=== PATIENT | female | born 1960 | race Caucasian/White ===

== ENCOUNTER 2016-08-27 15:25 | Emergency (ER) | payer MEDICARE, MEDICAID ==
[2016-08-27 15:57] VITALS: BP 131/69
--- NOTE | 2016-08-27 16:47 | EDM.PDOC ---
ED HPI GENERAL MEDICAL PROBLEM - General Chief Complaint: Upper Extremity Injury/Pain Stated Complaint: Chest wall pain, right foot pain Time Seen by Provider: 08/27/16 16:35 Source of Information: Reports: Patient, RN Notes Reviewed History Limitations: Reports: No Limitations - History of Present Illness INITIAL COMMENTS - FREE TEXT/NARRATIVE: 56 year old female presents to the ED with right anterior chest wall pain and right lateral foot pain. The symptoms started two days ago after a fall. She was running and tripped. The pain in her chest is worse with inspiration. She has tenderness under her right breast, to her bra line area. The pain raps around her right side. She denies shortness of breath. She also has right lateral foot pain. She is able to bear weight. No numbness or tingling. No LOC with the fall. No neck pain, abdominal pain, nausea, vomiting. She has a history of fibromyalgia. She took her regular pain medications earlier today and had some relief. She has Tramadol at home but hasn't taken much. Right Chest Pain Score (Numeric/FACES): 6 - Related Data Allergies Allergy/AdvReac Type Severity Reaction Status Date / Time No Known Allergies Allergy Verified 08/27/16 15:51 Home Meds: Home Meds Cymbalta. 08/27/16 [History] Gabapentin [Neurontin] 300 mg PO QID 08/27/16 [History] Losartan. 08/27/16 [History] Tramadol. 08/27/16 [History] tiZANidine [Zanaflex] 4 mg PO Q6H 08/27/16 [History] Past Medical History Cardiovascular History: Reports: Hypertension Musculoskeletal History: Reports: Back Pain, Chronic, Fibromyalgia, Osteoarthritis, Other (See Below) Other Musculoskeletal History: spinal stenosis Neurological History: Reports: Migraines Psychiatric History: Reports: Anxiety, Depression Social & Family History - Tobacco Use Smoking Status *Q: Unknown Ever Smoked - Recreational Drug Use Recreational Drug Use: Yes Drug Use in Last 12 Months: Yes Recreational Drug Type: Reports: Marijuana/Hashish ED ROS GENERAL - Review of Systems Review Of Systems: See Below Constitutional: Reports: No Symptoms. Denies: Fever, Chills Respiratory: Reports: Pleuritic Chest Pain, Other (chest wall pain). Denies: Shortness of Breath Cardiovascular: Reports: No Symptoms GI/Abdominal: Reports: No Symptoms. Denies: Abdominal Pain, Nausea, Vomiting Musculoskeletal: Reports: Foot Pain. Denies: Neck Pain Neurological: Reports: No Symptoms. Denies: Numbness, Tingling, Weakness ED EXAM, GENERAL - Physical Exam Exam: See Below Exam Limited By: No Limitations General Appearance: Alert, WD/WN, No Apparent Distress, Anxious Neck: Normal Inspection, Supple, Non-Tender, Full Range of Motion Respiratory/Chest: No Respiratory Distress, Lungs Clear, Normal Breath Sounds, Other (tenderness with palpation of right anterior chest. no crepitus, no subcutaneous emphysema) Cardiovascular: Normal Peripheral Pulses, Regular Rate, Rhythm, No Murmur GI/Abdominal: Normal Bowel Sounds, Soft, Non-Tender Extremities: Other (tenderness to right lateral foot with minimal swelling. CMS intact. She is able to bear weight.) Neurological: Alert, Oriented, Normal Cognition Course - Vital Signs Last Recorded V/S: Last Vital Signs Temp 97.2 F 08/27/16 15:54 Pulse 64 08/27/16 15:54 Resp 20 08/27/16 15:54 BP 131/69 08/27/16 15:54 Pulse Ox 97 08/27/16 15:54 - Orders/Labs/Meds Orders: Active Orders 24 hr Category Date Time Status Foot Comp Min 3V Rt [CR] Stat Exams 08/27/16 16:45 Taken Ribs 2V w Chest Rt [CR] Stat Exams 08/27/16 16:44 Taken - Re-Assessments/Exams Free Text/Narrative Re-Assessment/Exam: Chest xray is negative for pneumo or hemothorax. Rib views obtained. No rib fractures appreciated. Right foot x-ray is also negative for fracture. Patient was notified of findings. She has prescription for Tramadol. Instructed to take Tramadol as needed. Educated on supportive care. Discharge instructions as documented. Departure - Departure Time of Disposition: 17:56 Disposition: Home, Self-Care 01 Condition: good Clinical Impression: Chest wall contusion Qualifiers: Encounter type: initial encounter Laterality: right Qualified Code(s): S20.211A - Contusion of right front wall of thorax, initial encounter Foot sprain Qualifiers: Encounter type: initial encounter Laterality: right Qualified Code(s): S93.601A - Unspecified sprain of right foot, initial encounter - Discharge Information Instructions: Acute Ankle Sprain With Phase I Rehab-SportsMed, Chest Contusion , [id number] Referrals: PCP,Not In Area [Primary Care Provider] - Forms: ED Department Discharge Additional Instructions: Rest, ice and elevate your foot Ice packs to your chest Tramadol 1-2 tabs every 4-6 hours as needed for pain Use caution with increasing your Tramadol in combination with your other pain medications due to risk for over sedation Be sure to cough and deep breathe when you have adequate pain control to help prevent pneumonia. - My Orders Last 24 Hours: My Active Orders 08/27/16 16:44 Ribs 2V w Chest Rt [CR] Stat 08/27/16 16:45 Foot Comp Min 3V Rt [CR] Stat - Assessment/Plan Last 24 Hours: My Active Orders 08/27/16 16:44 Ribs 2V w Chest Rt [CR] Stat 08/27/16 16:45 Foot Comp Min 3V Rt [CR] Stat
--- NOTE | 2016-08-28 11:40 | CR ---
Chest and right ribs: Frontal view of the chest was obtained as well as three views of the right ribs. Comparison: No previous study. Heart size and mediastinum are normal. Slight linear density within the left base is seen compatible with atelectasis. Lungs otherwise are clear. No pneumothorax is seen. Minimal deformity seen within the fifth rib on one view possibly due to incomplete nondisplaced rib fracture. No additional rib abnormality is appreciated. Impression: 1. Equivocal findings for nondisplaced and incomplete fracture within the right fifth rib. 2. Minimal left basilar atelectasis. 3. Chest and right rib exam is otherwise unremarkable. Diagnostic code #3
--- NOTE | 2016-08-28 11:40 | CR ---
Right foot: Four views of the right foot were obtained. Comparison: No previous study. Joint spaces are preserved. No fracture, dislocation or other bony abnormality is identified. Impression: 1. No abnormality is identified on right foot study. Diagnostic code #1
== END 2016-08-27 18:14 | disposition home or self-care (01) ==
LOC: JD.ED 15:25
DX: S93.601A Unspecified sprain of right foot, initial encounter (principal); S20.211A Contusion of right front wall of thorax, initial encounter; I10 Essential (primary) hypertension; M19.90 Unspecified osteoarthritis, unspecified site; G43.909 Migraine, unspecified, not intractable, without status migrainosus; F41.9 Anxiety disorder, unspecified; F32.9 Major depressive disorder, single episode, unspecified; W01.0XXA Fall on same level from slipping, tripping and stumbling without subsequent striking against object, initial encounter
CPT/HCPCS: 71101-26-RT; 71101-RT; 73630-26-RT; 73630-RT; 99282; 99283

== ENCOUNTER 2017-05-05 08:24 | Emergency (ER) | payer MEDICARE, MEDICAID ==
[2017-05-05] MEDS ORDERED: Sodium Chloride 0.9% 10 ML Syringe FLUSH PRN ×2 (09:17→12:30)
[2017-05-05] MEDS ORDERED: Ondansetron 4 MG/2 ML SDV IVPUSH ONE (09:17)
--- NOTE | 2017-05-05 09:18 | EDM.PDOC ---
ED HPI GENERAL MEDICAL PROBLEM - General Chief Complaint: Back Pain or Injury Stated Complaint: [facility] Time Seen by Provider: 05/05/17 09:00 Source of Information: Reports: Patient, RN Notes Reviewed - History of Present Illness INITIAL COMMENTS - FREE TEXT/NARRATIVE: 57-year-old female comes in with severe low back pain. Had lumbar surgery 8 days ago in [place]. She had been doing relatively well and not needing much pain medication. This morning her low back pain is much more severe with some radiation down the right leg. She is okay at rest but does have severe pain with any type of motion. She is not having any fever or chills. No abdominal pain nausea or vomiting. No chest pain or difficulty breathing. Lower Back Pain Score (Numeric/FACES): 6 - Related Data Allergies Allergy/AdvReac Type Severity Reaction Status Date / Time No Known Allergies Allergy Verified 05/05/17 08:31 Home Meds: Home Meds Cymbalta. 60 mg PO DAILY 08/27/16 [History] Gabapentin [Neurontin] 600 mg PO TID 08/27/16 [History] Tramadol. 50 mg PO QID PRN 08/27/16 [History] tiZANidine [Zanaflex] 4 mg PO TID PRN 08/27/16 [History] Apixaban [Eliquis] 2.5 mg PO DAILY 05/05/17 [History] Docusate Sodium [Stool Softener] 50 mg PO DAILY PRN 05/05/17 [History] Doxycycline [Vibramycin] 100 mg PO BID #14 tab 05/05/17 [Rx] Past Medical History Cardiovascular History: Reports: Hypertension Gastrointestinal History: Reports: GERD Genitourinary History: Reports: UTI, Recurrent [employer] History: Reports: Musculoskeletal History: Reports: Back Pain, Chronic, Fibromyalgia, Osteoarthritis, Other (See Below) Other Musculoskeletal History: spinal stenosis Neurological History: Reports: Migraines Psychiatric History: Reports: Anxiety, Depression Hematologic History: Reports: Other (See Below) Other Hematologic History: factor 5--recently Dx'd. - Infectious Disease History Infectious Disease History: Reports: Chicken Pox - Past Surgical History HEENT Surgical History: Reports: Tonsillectomy, Other (See Below) Other HEENT Surgeries/Procedures: reconstructive surgery to L) ear. Wears dentures, upper/lower plates. GI Surgical History: Reports: Colonoscopy Musculoskeletal Surgical History: Reports: Other (See Below) Other Musculoskeletal Surgeries/Procedures:: "decompression" surgery to lower back. Social & Family History - Tobacco Use Smoking Status *Q: Former Smoker Years of Tobacco use: 40 Packs/Tins Daily: 1.5 Used Tobacco, but Quit: Yes Month Tobacco Last Used: November 2016 Second Hand Smoke Exposure: No - Caffeine Use Caffeine Use: Reports: Coffee - Recreational Drug Use Recreational Drug Use: Yes Drug Use in Last 12 Months: Yes Recreational Drug Type: Reports: Marijuana/Hashish Other Recreational Drug Type: states smokes Cannibus oil "for the pain." ED ROS GENERAL - Review of Systems Review Of Systems: See Below Constitutional: Denies: Fever, Chills HEENT: Denies: Throat Pain Respiratory: Denies: Shortness of Breath, Pleuritic Chest Pain Cardiovascular: Denies: Chest Pain GI/Abdominal: Denies: Abdominal Pain, Nausea, Vomiting Musculoskeletal: Denies: Back Pain Skin: Denies: Rash Neurological: Denies: Numbness, Tingling, Weakness ED EXAM,LOWER BACK PAIN/INJURY - Physical Exam Exam: See Below Eye Exam: Bilateral Eye: PERRL Throat/Mouth: Normal Inspection Head: Atraumatic. No: Facial Swelling Neck: Supple, Full Range of Motion Respiratory/Chest: No Respiratory Distress, Lungs Clear, Normal Breath Sounds Cardiovascular: Regular Rate, Rhythm GI/Abdominal: Non-Tender Back Exam: Other (Incision low back is healing well, no warmth erythema swelling or drainage) Extremities: Normal Inspection, Normal Range of Motion Neurological: Alert, No Motor/Sensory Deficits Course - Vital Signs Last Recorded V/S: Last Vital Signs Temp 95.2 F L 05/05/17 08:25 Pulse 63 05/05/17 16:00 Resp 18 05/05/17 16:00 BP 160/90 H 05/05/17 16:00 Pulse Ox 98 05/05/17 16:00 - Orders/Labs/Meds Orders: Active Orders 24 hr Category Date Time Status Peripheral IV Care [RC] . DIRECTED Care 05/05/17 09:17 Active Peripheral IV Insertion Adult [OM.PC] Stat Oth 05/05/17 09:17 Ordered Labs: Laboratory Tests 05/05/17 05/05/17 05/05/17 Range/Units 09:30 09:30 09:30 WBC 7.98 (3.98-10.04) K/mm3 RBC 4.85 (3.98-5.22) M/mm3 Hgb 14.3 (11.2-15.7) gm/L Hct 43.7 (34.1-44.9) % MCV 90.1 (79.4-94.8) fl MCH 29.5 (25.6-32.2) pg MCHC 32.7 (32.2-35.5) g/dl RDW Std Deviation 42.0 (36.4-46.3) fL Plt Count 443 H (182-369) K/mm3 MPV 9.3 L (9.4-12.3) fl Neut % (Auto) 52.9 (34.0-71.1) % Lymph % (Auto) 32.5 (19.3-51.7) % [place] % (Auto) 8.6 (4.7-12.5) % Eos % (Auto) 4.6 (0.7-5.8) Baso % (Auto) 0.3 (0.1-1.2) % Neut # (Auto) 4.22 (1.56-6.13) K/mm3 Lymph # (Auto) 2.59 (1.18-3.74) K/mm3 [place] # (Auto) 0.69 H (0.24-0.36) K/mm3 Eos # (Auto) 0.37 H (0.04-0.36) K/mm3 Baso # (Auto) 0.02 (0.01-0.08) K/mm3 Sodium 142 (136-145) mEq/L Potassium 3.8 (3.5-5.1) mEq/L Chloride 107 (98-107) mEq/L Carbon Dioxide 24 (21-32) mEq/L Anion Gap 14.8 (5-15) BUN 6 L (7-18) mg/dL Creatinine 0.7 (0.55-1.02) mg/dL Est Cr Clr Drug Dosing 78.41 mL/min Estimated GFR (MDRD) > 60 (>60) mL/min BUN/Creatinine Ratio 8.6 L (14-18) Glucose 129 H (74-106) mg/dL Calcium 9.5 (8.5-10.1) mg/dL Total Bilirubin 0.2 (0.2-1.0) mg/dL AST 19 (15-37) U/L ALT 23 (14-59) U/L Alkaline Phosphatase 109 (46-116) U/L C-Reactive Protein 1.5 H* (<1.0) mg/dL Total Protein 7.8 (6.4-8.2) g/dl Albumin 3.5 (3.4-5.0) g/dl Globulin 4.3 gm/dL Albumin/Globulin Ratio 0.8 L (1-2) Meds: Medications Discontinued Medications Generic Name Dose Route Start Last Admin Trade Name Freq PRN Reason Stop Dose Admin Doxycycline Hyclate 100 mg 05/05/17 15:55 05/05/17 15:59 Vibramycin PO 05/05/17 15:56 100 mg ONETIME ONE Administration Gadobenate Dimeglumine 19 ml 05/05/17 12:30 05/05/17 12:58 Multihance IVPUSH 05/05/17 12:31 19 ml ONETIME ONE Administration Hydromorphone HCl 0.5 mg 05/05/17 09:25 05/05/17 09:53 Dilaudid IV 05/05/17 09:26 0.5 mg ONETIME ONE Administration Sodium Chloride 1,000 mls @ 150 mls/hr 05/05/17 09:30 05/05/17 09:31 Normal Saline IV 150 mls/hr ASDIRECTED SHEY Administration Metoclopramide HCl 5 mg 05/05/17 11:02 05/05/17 11:05 Reglan IVPUSH 05/05/17 11:03 5 mg ONETIME ONE Administration Metoclopramide HCl Confirm 05/05/17 11:08 05/05/17 11:07 Reglan Administered 05/05/17 11:09 Not Given Dose 10 mg .ROUTE .STK-MED ONE Ondansetron HCl 4 mg 05/05/17 09:17 05/05/17 09:32 Zofran IVPUSH 05/05/17 09:18 4 mg ONETIME ONE Administration Sodium Chloride 10 ml 05/05/17 09:17 05/05/17 09:32 Saline Flush FLUSH 10 ml ASDIRECTED PRN Administration Keep Vein Open Sodium Chloride 20 ml 05/05/17 12:30 05/05/17 12:57 Saline Flush FLUSH 20 ml ONETIME PRN Administration Keep Vein Open - Re-Assessments/Exams Free Text/Narrative Re-Assessment/Exam: 05/05/17 20:02. We did do an MRI of her low back. We had to wait a few hours to get that done. I do have the report back and it does show a fluid collection consistent with hematoma in the subcutaneous tissue posterior to L4 area. There are no findings of epidural abscess, no epidural hematoma seen see radiology report for details. We had treated her with 0.5 mg Dilaudid IV not too long after arrival. Give her good pain relief. At time of discharge, much later we did get her up with a walker and with that she was doing quite well. Discharge instructions as documented. Departure - Departure Time of Disposition: 15:58 Disposition: Home, Self-Care 01 Condition: Fair Clinical Impression: Back pain Qualifiers: Back pain location: low back pain Chronicity: acute Back pain laterality: midline Sciatica presence: with sciatica Sciatica laterality: sciatica of left side Qualified Code(s): M54.42 - Lumbago with sciatica, left side - Discharge Information Prescriptions: Doxycycline [Vibramycin] 100 mg PO BID #14 tab Instructions: Back Pain, Adult, [id number] Referrals: Mercedes Naranjo NP [Primary Care Provider] - Forms: ED Department Discharge Additional Instructions: Doxycycline 100 mg twice daily for 1 week or until gone, use walker to help get around her house or apartment. That will take a lot of stress off of your back. He may take Tylenol up to 3 times daily. If you need to you may take a half or quarter tablet previously prescribed pain pill along with a 500 mg Tylenol instead for stronger pain relief. Drink plenty of water to maintain hydration. Follow-up with your regular provider or surgeon in about 3-5 days for recheck. Return to ED as needed if symptoms worsening in any way. - My Orders Last 24 Hours: My Active Orders 05/05/17 09:17 Peripheral IV Care [RC] . DIRECTED Peripheral IV Insertion Adult [OM.PC] Stat - Assessment/Plan Last 24 Hours: My Active Orders 05/05/17 09:17 Peripheral IV Care [RC] . DIRECTED Peripheral IV Insertion Adult [OM.PC] Stat
[2017-05-05] MEDS ORDERED: HYDROmorphone 0.5 MG/0.5 ML SYRINGE IV ONE (09:25)
[2017-05-05] MEDS ORDERED: Sodium Chloride 0.9% 1,000 ML IV SCH (09:30)
[2017-05-05] MEDS ORDERED: Metoclopramide 10 MG/2 ML SDV IVPUSH ONE (11:02)
[2017-05-05] MEDS ORDERED: Metoclopramide 10 MG/2 ML SDV ONE (11:08)
[2017-05-05] MEDS ORDERED: Gadobenate Dimeglumine 529 MG/ML 20 ML SDV IVPUSH ONE (12:30)
--- NOTE | 2017-05-05 13:30 | MR ---
MRI lumbar spine Technique: T1 and T2-weighted axial images were obtained as well as T1 post-gadolinium fat suppressed axial images from above the T12-L1 disc through the L5-S1 disc. T1, T2, fat-suppressed inversion recovery and post-gadolinium T1 fat-suppressed sagittal images were also obtained. Comparison: No prior lumbar spine imaging. Findings: T11-T12: Slight anterior disc bulge is seen. Posterior disc is maintained. No central canal stenosis or neural foraminal stenosis is seen. T12-L1: Posterior disc is preserved. No central canal stenosis or neural foraminal stenosis is seen. L1-L2: Posterior disc is preserved. No central canal stenosis or neural foraminal stenosis is seen. L2-L3: Posterior disc is preserved. No central canal stenosis or neural foraminal stenosis is seen. L3-L4: Posterior disc is preserved. No central canal stenosis or neural foraminal stenosis is seen. L4-L5: Circumferential disc bulge is seen. Small focal posterior disc bulge to the midline is noted with minimal annular tear. This indents the anterior thecal sac. Previous surgery noted at this level with mini laminectomy on the right side. No central canal stenosis is seen. Neural foramina are patent where the nerve roots exit. L5-S1: Severe disc space narrowing is noted. Circumferential disc bulge is seen with focal disc protrusion posteriorly to the midline. Previous right sided mini laminectomy is noted. No central canal stenosis or neural foraminal stenosis is seen. Cystic area likely due to old hematoma or seroma or less likely abscess which is noted posterior to L4-L5 measuring about 3.9 cm x 3.9 cm x 3.9 cm. Surrounding enhancement is seen compatible with recent surgery. There are no findings of epidural abscess. No epidural hematoma is seen. Impression: 1. Previous surgery at L4-L5 and L5-S1 as noted above. Minimal degenerative change as noted above. 2. Old hematoma or seroma, or less likely abscess within the subcutaneous tissues posterior to L4-L5. 3. Nothing acute is otherwise appreciated. Diagnostic code #3
[2017-05-05] MEDS ORDERED: Doxycycline 100 MG Cap PO ONE (15:55)
[2017-05-05 16:11] VITALS: BP 160/90
== END 2017-05-05 16:20 | disposition home or self-care (01) ==
LOC: SUPCPDRO 08:24 → JD.ED 08:24
DX: M54.42 Lumbago with sciatica, left side (principal); I10 Essential (primary) hypertension; K21.9 Gastro-esophageal reflux disease without esophagitis; Z87.891 Personal history of nicotine dependence; Z79.899 Other long term (current) drug therapy
CPT/HCPCS: 36415; 72158; 80053; 85025; 86140; 96361; 96374; 96375; 99285; A9270; A9577; J1170; J2405; J2765; J7040; J7050; 99284

== ENCOUNTER 2017-08-14 06:09 | Emergency (ER) | payer MEDICARE, MEDICAID ==
[2017-08-14 06:19] VITALS: BP 157/87
[2017-08-14] MEDS ORDERED: Ondansetron 4 MG/2 ML SDV IVPUSH ONE (07:01)
--- NOTE | 2017-08-14 07:06 | EDM.PDOC ---
<Trung Ruffin - Last Filed: 08/14/17 07:01> ED HPI GENERAL MEDICAL PROBLEM - General Chief Complaint: Abdominal Pain Stated Complaint: ABDOMINAL PAIN/NAUSEA Time Seen by Provider: 08/14/17 06:36 Source of Information: Reports: Patient History Limitations: Reports: No Limitations - History of Present Illness INITIAL COMMENTS - FREE TEXT/NARRATIVE: The patient states that she has had upper abdominal burning and cramping for about one month, progressively worsening. She has had nausea and vomiting, lightheadedness, and hot flashes. Her symptoms are worse if she eats. She saw her PCP, Mercedes Naranjo about 2 weeks ago. The patient states that no tests were done, but that she was prescribed Protonix which she has been taking every morning. She states that the Protonix has not helped at all. The patient states that she had an ulcer a number of years ago, and was treated with Tagamet and antibiotics for about 2 weeks. Middle Abdomen Pain Score (Numeric/FACES): 5 - Related Data Allergies Allergy/AdvReac Type Severity Reaction Status Date / Time No Known Allergies Allergy Verified 08/14/17 06:19 Home Meds: Home Meds Gabapentin [Neurontin] 800 mg PO TID 08/27/16 [History] tiZANidine [Zanaflex] 4 mg PO TID PRN 08/27/16 [History] traMADol [Ultram] 50 mg PO TID PRN 08/27/16 [History] Docusate Sodium [Stool Softener] 50 mg PO DAILY PRN 05/05/17 [History] Dicyclomine [Bentyl] 10 mg PO TID PRN #30 cap 08/14/17 [Rx] Ondansetron [Zofran ODT] 4 mg PO Q6H PRN #20 tab.dis 08/14/17 [Rx] Pantoprazole Sodium [Protonix] 20 mg PO DAILY 08/14/17 [History] Sucralfate [Carafate] 1 gm PO BTHMEALBED PRN #120 ml 08/14/17 [Rx] Past Medical History Cardiovascular History: Reports: Hypertension Gastrointestinal History: Reports: PUD Genitourinary History: Reports: Urinary Incontinence 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: Musculoskeletal History: Reports: Back Pain, Chronic (spinal stenosis), Osteoarthritis Neurological History: Reports: Headaches, Chronic Psychiatric History: Reports: Anxiety, Depression, Other (See Below) ( Fibromyalgia) Endocrine/Metabolic History: Reports: Obesity/BMI 30+ Hematologic History: Reports: Other (See Below) (Factor V Leiden) - Infectious Disease History Infectious Disease History: Reports: Chicken Pox - Past Surgical History HEENT Surgical History: Reports: Oral Surgery (All teeth extracted), Tonsillectomy, Other (See Below) (Left ear reconstruction x 2) GI Surgical History: Reports: Colonoscopy Neurological Surgical History: Reports: Lumbar Spine (Laminectomy) Social & Family History - Tobacco Use Smoking Status *Q: Former Smoker Years of Tobacco use: 34 Packs/Tins Daily: 1.5 Month/Year Tobacco Last Used: Quit 2012 Second Hand Smoke Exposure: No - Caffeine Use Caffeine Use: Reports: Coffee - Alcohol Use Alcohol Use History: No - Recreational Drug Use Recreational Drug Use: Yes Drug Use in Last 12 Months: Yes Recreational Drug Type: Reports: Marijuana/Hashish (Cannabis oil) - Living Situation & Occupation Living situation: Reports: , Alone Occupation: Disabled ED ROS GENERAL - Review of Systems Review Of Systems: ROS reveals no pertinent complaints other than HPI. ED EXAM, GI/ABD - Physical Exam Exam: See Below Exam Limited By: No Limitations General Appearance: Alert, WD/WN, No Apparent Distress Eyes: Bilateral: Normal Appearance, EOMI Ears: Normal External Exam, Hearing Grossly Normal Nose: Normal Inspection, No Blood Throat/Mouth: Normal Inspection, Normal Lips, Normal Voice, No Airway Compromise Head: Atraumatic, Normocephalic Neck: Normal Inspection, Full Range of Motion Respiratory/Chest: No Respiratory Distress, Lungs Clear, Normal Breath Sounds, No Accessory Muscle Use Cardiovascular: Normal Peripheral Pulses, Regular Rate, Rhythm, No Gallop, No JVD, No Murmur, No Rub GI/Abdominal Exam: Normal Bowel Sounds, Soft, No Organomegaly, No Distention, No Abnormal Bruit, No Mass, Tender (To the epigastric region. Less tender to the right upper quadrant. Essentially nontender elsewhere.), Other (Obese) (Female) Exam: Deferred Rectal (Female) Exam: Deferred Back Exam: Normal Inspection, Full Range of Motion. No: CVA Tenderness (L), CVA Tenderness (R) Extremities: Normal Inspection, Normal Range of Motion, No Pedal Edema, Normal Capillary Refill Neurological: Alert, Oriented, Normal Cognition, No Motor/Sensory Deficits Psychiatric: Normal Affect Skin Exam: Warm, Dry, Intact, Normal Color, No Rash Course - Vital Signs Last Recorded V/S: Last Vital Signs Temp 97.2 F 08/14/17 06:15 Pulse 72 08/14/17 06:15 Resp 18 08/14/17 06:15 BP 157/87 H 08/14/17 06:15 Pulse Ox 97 08/14/17 06:15 - Orders/Labs/Meds Orders: Active Orders 24 hr Category Date Time Status Abdomen Pelvis w Cont [CT] Stat Exams 08/14/17 07:00 Taken Sodium Chloride 0.9% [Normal Saline] 1,000 ml Med 08/14/17 07:15 Active IV ASDIRECTED Medication Orders Sodium Chloride (Normal Saline) 1,000 mls @ 150 mls/hr IV ASDIRECTED SHEY Last Admin: 08/14/17 07:15 Dose: 150 mls/hr Labs: Laboratory Tests 08/14/17 08/14/17 08/14/17 Range/Units 06:30 06:54 06:54 WBC 6.49 (3.98-10.04) K/mm3 RBC 4.83 (3.98-5.22) M/mm3 Hgb 14.2 (11.2-15.7) gm/L Hct 43.3 (34.1-44.9) % MCV 89.6 (79.4-94.8) fl MCH 29.4 (25.6-32.2) pg MCHC 32.8 (32.2-35.5) g/dl RDW Std Deviation 44.3 (36.4-46.3) fL Plt Count 334 (182-369) K/mm3 MPV 9.8 (9.4-12.3) fl Neutrophils % (Manual) 47 (40-60) % Band Neutrophils % 0 (0-10) % Lymphocytes % (Manual) 45 H (20-40) % Atypical Lymphs % 0 % Monocytes % (Manual) 8 (2-10) % Eosinophils % (Manual) 0 L (0.7-5.8) % Basophils % (Manual) 0 L (0.1-1.2) Platelet Estimate Adequate Plt Morphology Comment Normal RBC Morph Comment Normal Sodium 141 (136-145) mEq/L Potassium 3.7 (3.5-5.1) mEq/L Chloride 105 (98-107) mEq/L Carbon Dioxide 25 (21-32) mEq/L Anion Gap 14.7 (5-15) BUN 9 (7-18) mg/dL Creatinine 0.9 (0.55-1.02) mg/dL Est Cr Clr Drug Dosing 60.99 mL/min Estimated GFR (MDRD) > 60 (>60) mL/min BUN/Creatinine Ratio 10.0 L (14-18) Glucose 104 (74-106) mg/dL Calcium 9.4 (8.5-10.1) mg/dL Total Bilirubin 0.5 (0.2-1.0) mg/dL AST 26 (15-37) U/L ALT 27 (14-59) U/L Alkaline Phosphatase 106 (46-116) U/L Total Protein 7.7 (6.4-8.2) g/dl Albumin 3.9 (3.4-5.0) g/dl Globulin 3.8 gm/dL Albumin/Globulin Ratio 1.0 (1-2) Lipase 111 (73-393) U/L Urine Color Yellow (Yellow) Urine Appearance Clear (Clear) Urine pH 6.0 (5.0-8.0) Ur Specific [place] 1.015 (1.005-1.030) Urine Protein Negative (Negative) Urine Glucose (UA) Negative (Negative) Urine Ketones Negative (Negative) Urine Occult Blood Negative (Negative) Urine Nitrite Negative (Negative) Urine Bilirubin Negative (Negative) Urine Urobilinogen 0.2 (0.2-1.0) Ur Leukocyte Esterase 1+ H (Negative) Urine RBC 0-5 (0-5) /hpf Urine WBC 0-5 (0-5) /hpf Ur Epithelial Cells 0-5 (0-5) /hpf Urine Bacteria Few (FEW) /hpf Urine Mucus Not seen (FEW) /hpf Meds: Medications Generic Name Dose Route Start Last Admin Trade Name Freq PRN Reason Stop Dose Admin Sodium Chloride 1,000 mls @ 150 mls/hr 08/14/17 07:15 08/14/17 07:15 Normal Saline IV 150 mls/hr ASDIRECTED SHEY Administration Discontinued Medications Generic Name Dose Route Start Last Admin Trade Name Freq PRN Reason Stop Dose Admin Diatrizoate Meglum/Diatrizoate Sod 90 ml 08/14/17 08:33 08/14/17 08:43 Gastrografin 37% PO 08/14/17 08:34 90 ml ONETIME ONE Administration Iopamidol 125 ml 08/14/17 08:33 08/14/17 08:44 Isovue-300 (61%) IVPUSH 08/14/17 08:34 125 ml ONETIME ONE Administration Ondansetron HCl 4 mg 08/14/17 07:01 08/14/17 07:15 Zofran IVPUSH 08/14/17 07:02 4 mg ONETIME ONE Administration - Re-Assessments/Exams Free Text/Narrative Re-Assessment/Exam: 08/14/17 07:09 The patient was offered pain medication, but declined. She is feeling nauseated at this time, so I have ordered Zofran along with IV fluid. Case discussed with Dr. Padilla, and care of the patient turned over to him at this time, for change of shift. Departure - Departure Disposition: Home, Self-Care 01 Clinical Impression: Abdominal pain Qualifiers: Abdominal location: upper abdomen, unspecified Qualified Code(s): R10.10 - Upper abdominal pain, unspecified - Discharge Information Prescriptions: Dicyclomine [Bentyl] 10 mg PO TID PRN #30 cap PRN Reason: Pain Ondansetron [Zofran ODT] 4 mg PO Q6H PRN #20 tab.dis PRN Reason: Nausea\vomiting Sucralfate [Carafate] 1 gm PO BTHMEALBED PRN #120 ml PRN Reason: Abdominal Pain Referrals: Mercedes Naranjo NP [Primary Care Provider] - Jony Stringer MD [Physician] - 1 Week Forms: ED Department Discharge Additional Instructions: Avoid spicy foods. Drink plenty of water. Take the zofran as needed for nausea and vomiting. Take the carafate 1 hour before meals. Take the bentyl if you have any abdominal pain. You may also take some pepcid 20mg daily. Continue with your other medications. Follow up with Dr Stringer in 1 week. Please return if you are worse. <Goran Padilla - Last Filed: 08/14/17 09:35> Course - Re-Assessments/Exams Free Text/Narrative Re-Assessment/Exam: 05/26/18 09:[address] Ruffin. The patient's CBC and CMP look good. Her lipase is normal. Her UA shows no UTI. Her CT shows nothing acute. She still has some pain. She would like something nonnarcatic. I will give her some toradol and pepcid. I am concerned this may be an ulcer. I will refer her to Dr Stringer. Departure - Departure Time of Disposition: 09:30 Condition: Good
[2017-08-14] MEDS ORDERED: Sodium Chloride 0.9% 1,000 ML IV SCH (07:15)
[2017-08-14] MEDS ORDERED: Diatrizoate Meglumine/Diatrizoate Sodium 37% 120 ML Bottle PO ONE (08:33)
[2017-08-14] MEDS ORDERED: Iopamidol 612 MG/ML 150 ML Bottle IVPUSH ONE (08:33)
[2017-08-14] MEDS ORDERED: Famotidine 20 MG/2 ML SDV IVPUSH ONE (09:29)
[2017-08-14] MEDS ORDERED: Ketorolac 30 MG/ML SDV IVPUSH ONE (09:29)
--- NOTE | 2017-08-16 08:37 | CT ---
CT abdomen and pelvis Technique: Multiple axial sections were obtained from above the dome of the diaphragm inferiorly to the pubic symphysis. Intravenous and oral contrast has been given. Delayed images were also obtained through the bladder. Comparison: No prior CT abdomen or pelvis exam. Findings: Visualized lung bases show nothing acute. Liver shows fatty infiltration without focal abnormality. Spleen appears within normal limits. Adrenal glands show no nodule. Pancreas is normal. Gallbladder contains no calcified gallstones. Kidneys show symmetric contrast enhancement without hydronephrosis or mass. Aorta shows no aneurysmal dilatation. No retroperitoneal adenopathy or mesenteric abnormalities are seen. No pelvic mass or adenopathy is seen. No free fluid or inflammatory change is seen within the abdomen or within the pelvis. Delayed images show contrast within the distal ureters and within the bladder. Appendix is not visualized with certainty. Bone window settings show scattered degenerative change most prominent at L5-S1 with disc space narrowing and vacuum phenomena. Incidental small fat-containing umbilical hernia is noted. Impression: 1. Incidental findings. Nothing acute is appreciated on CT study of the abdomen and pelvis. Diagnostic code #2 I agree with preliminary report issued by [facility] ([facility] preliminary report dictated on 08/14/17, 10:05 AM Central Time)
== END 2017-08-14 09:53 | disposition home or self-care (01) ==
LOC: JD.ED 06:09
DX: R10.10 Upper abdominal pain, unspecified (principal); Z87.891 Personal history of nicotine dependence; Z79.899 Other long term (current) drug therapy; I10 Essential (primary) hypertension
CPT/HCPCS: 36415; 74177; 80053; 81001; 83690; 85007; 85027; 96361; 96374; 96375; 99284; J1885; J2405; J7040; Q9963; Q9967

== ENCOUNTER 2017-12-10 11:51 | Emergency (ER) | payer MEDICARE, MEDICAID ==
[2017-12-10 12:05] VITALS: BP 145/77
--- NOTE | 2017-12-10 12:34 | EDM.PDOC ---
ED HPI GENERAL MEDICAL PROBLEM - General Chief Complaint: Lower Extremity Injury/Pain Stated Complaint: RT FOOT PAIN Time Seen by Provider: 12/10/17 12:09 Source of Information: Reports: Patient History Limitations: Reports: No Limitations - History of Present Illness INITIAL COMMENTS - FREE TEXT/NARRATIVE: Patient is a 57-year-old female with a history of plantar fasciitis. She states symptoms started approximately 2 months ago and was evaluated by Dr. Casey [address] magistrate. X-ray of the foot was obtained with no fractures present. She has been seen by Belkis Naranjo NURSES SUPERVISOR for pain management. Recently prescribed Percocet and a muscle relaxer with minimal relief. Has not been utilizing any anti-inflammatories. Has used ice and elevation with no significant improvements. States her shoes are in poor shape. She cannot afford to get a new set until next month. Pain is worsened with ambulation. No recent trauma precipitating the discomfort. No swelling, bruising, or sensory/motor deficits. Patient ran out of the pain medications and muscle relaxer recently. Her next appointment with Dr. Casey is next month.Denies any additional complaints. Treatments MACHINE TENDER: Reports: Other (see below) Other Treatments MACHINE TENDER: gabapentin Right Feet Pain Score (Numeric/FACES): 8 - Related Data Allergies Allergy/AdvReac Type Severity Reaction Status Date / Time No Known Allergies Allergy Verified 08/14/17 06:19 Home Meds: Home Meds Gabapentin [Neurontin] 800 mg PO TID 08/27/16 [History] tiZANidine [Zanaflex] 2 tab PO TID PRN 08/27/16 [History] traMADol [Ultram] 50 mg PO TID PRN 08/27/16 [History] Docusate Sodium [Stool Softener] 50 mg PO DAILY PRN 05/05/17 [History] Past Medical History Cardiovascular History: Reports: Hypertension Gastrointestinal History: Reports: PUD Genitourinary History: Reports: Urinary Incontinence 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 - Infectious Disease History Infectious Disease History: Reports: Chicken Pox - Past Surgical History HEENT Surgical History: Reports: Oral Surgery, Tonsillectomy, Other (See Below) GI Surgical History: Reports: Colonoscopy Neurological Surgical History: Reports: Lumbar Spine Social & Family History - Family History Family Medical History: Noncontributory - Tobacco Use Smoking Status *Q: Current Every Day Smoker Years of Tobacco use: 40 Packs/Tins Daily: 1 - Caffeine Use Caffeine Use: Reports: Coffee - Recreational Drug Use Recreational Drug Use: Yes Drug Use in Last 12 Months: Yes Recreational Drug Type: Reports: Marijuana/Hashish - Living Situation & Occupation Living situation: Reports: , Alone Occupation: Disabled Review of Systems - Review of Systems Review Of Systems: ROS reveals no pertinent complaints other than HPI. ED EXAM, GENERAL - Physical Exam Exam: See Below Exam Limited By: No Limitations General Appearance: Alert, WD/WN, No Apparent Distress Ears: Hearing Grossly Normal Nose: Normal Inspection Throat/Mouth: Normal Voice, No Airway Compromise Neck: Normal Inspection, Supple Respiratory/Chest: No Respiratory Distress, No Accessory Muscle Use Cardiovascular: Normal Peripheral Pulses, Regular Rate, Rhythm, No Murmur Peripheral Pulses: 2+: Radial (L) Extremities: Normal Inspection, Other (pain noted with palpation to the mid sole of the foot. no swelling, bruising, or bony abnormalities noted. pain with palpation to the 5th metatarsal. No swelling, bruising, and or bony abnormalities noted. ) Neurological: Alert, Oriented, CN II-XII Intact, Normal Cognition, No Motor/ Sensory Deficits Psychiatric: Normal Affect, Normal Mood Skin Exam: Warm, Dry, Intact, Normal Color, No Rash Course - Vital Signs Last Recorded V/S: Last Vital Signs Temp 98.1 F 12/10/17 12:01 Pulse 65 12/10/17 12:01 Resp 16 12/10/17 12:01 BP 145/77 H 12/10/17 12:01 Pulse Ox 94 L 12/10/17 12:01 - Re-Assessments/Exams Free Text/Narrative Re-Assessment/Exam: On examination patient's findings are consistent with plantar fasciitis. In addition she has pain along the fifth metatarsal with no bony abnormalities, bruising, swelling present. There were no sensory/motor deficits noted. No pain along the lower leg, ankle, and remaining portions of the foot and toes. I have offered to obtain x-ray of the foot to ensure there is no fracture to the fifth metatarsal to which the patient refused. I offered anti-inflammatories here in the ED for pain relief. Patient refuses. I will place a outpatient order form for PT evaluation and treatment. Patient will need to see primary care provider for further pain management. I do believe NSAIDs will be the treatment of choice along with PT. The patient remained hemodynamically stable while under my care in the E.D. I discussed the concerning symptoms for which to return to the E.D. with the patient. The patient verbalized understanding. All questions were answered. Departure - Departure Time of Disposition: 12:34 Disposition: Home, Self-Care 01 Condition: Good Clinical Impression: Plantar fasciitis, right - Discharge Information Instructions: Plantar Fasciitis Rehab-[facility] Referrals: Mercedes Naranjo NP [Primary Care Provider] - Forms: ED Department Discharge Additional Instructions: Please read the education material on plantar fasciitis provided. Refrain from any activities that cause worsening pain. Follow the instructions on stretching and exercise that may be performed to alleviate discomfort. Utilize ibuprofen for pain. May apply ice to affected area as well. Outpatient PT referral placed. They will contact you for appointment time. See Dr. Lopez for further evaluation. See your primary care provider for further pain management. Return to ED if you develop any new or worsening symptoms.
== END 2017-12-10 12:50 | disposition home or self-care (01) ==
LOC: JD.ED 11:51
DX: M72.2 Plantar fascial fibromatosis (principal); I10 Essential (primary) hypertension; F17.210 Nicotine dependence, cigarettes, uncomplicated
CPT/HCPCS: 99283

== ENCOUNTER 2019-11-25 06:08 | Emergency (ER) | payer MEDICARE, MEDICAID ==
[2019-11-25 06:20] VITALS: BP 135/78; PULSE 67
[2019-11-25] MEDS ORDERED: Acetaminophen/HYDROcodone 325-5 MG Tab PO ONE (06:36)
[2019-11-25] MEDS ORDERED: Cephalexin 500 MG Cap PO ONE (06:37)
[2019-11-25] MEDS ORDERED: Acetaminophen/oxyCODONE 325-5 MG Tab PO ONE (06:42)
--- NOTE | 2019-11-25 06:44 | EDM.PDOC ---
ED HPI GENERAL MEDICAL PROBLEM - General Chief Complaint: Upper Extremity Injury/Pain Stated Complaint: [facility] Time Seen by Provider: 11/25/19 06:22 Source of Information: Reports: Patient, EMS History Limitations: Reports: No Limitations - History of Present Illness INITIAL COMMENTS - FREE TEXT/NARRATIVE: The patient presents with right wrist, hand and thumb pain that radiates to her forearm. This started yesterday and it much worse today. She had an IV in her right wrist on for a CT scan of her mouth. She has been having some problems with that. There were nor problems with the IV but yesterday she started having pain. She has no redness or swelling and she has no fever or chills. Onset: Gradual Duration: Day(s): (2) Location: Reports: Upper Extremity, Right (wrist and thumb) Quality: Reports: Burning, Sharp Severity: Severe Improves with: Reports: Immobilization Worsens with: Reports: Movement Context: Denies: Trauma Associated Symptoms: Reports: No Other Symptoms - Related Data Allergies Allergy/AdvReac Type Severity Reaction Status Date / Time hydrocodone Allergy Severe Other Verified 11/25/19 06:20 Home Meds: Home Meds Gabapentin [Neurontin] 800 mg PO TID 08/27/16 [History] tiZANidine [Zanaflex] 2 tab PO TID PRN 08/27/16 [History] traMADol [Ultram] 50 mg PO TID PRN 08/27/16 [History] Docusate Sodium [Stool Softener] 50 mg PO DAILY PRN 05/05/17 [History] cephALEXin [Keflex] 500 mg PO QID #40 capsule 11/25/19 [Rx] oxyCODONE HCl/Acetaminophen [Percocet 5-325 mg Tablet] 1 - 2 each PO Q6HR PRN #20 tablet 11/25/19 [Rx] Past Medical History HEENT History: Reports: Impaired Vision Cardiovascular History: Reports: High Cholesterol, Hypertension Gastrointestinal History: Reports: PUD Genitourinary History: Reports: Urinary Incontinence 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 - Infectious Disease History Infectious Disease History: Reports: Chicken Pox - Past Surgical History HEENT Surgical History: Reports: Oral Surgery, Tonsillectomy, Other (See Below) GI Surgical History: Reports: Colonoscopy Neurological Surgical History: Reports: Lumbar Spine Social & Family History - Family History Family Medical History: Noncontributory - Tobacco Use Smoking Status *Q: Current Every Day Smoker Years of Tobacco use: 30 Packs/Tins Daily: 1.5 - Caffeine Use Caffeine Use: Reports: Coffee - Living Situation & Occupation Living situation: Reports: , Alone Occupation: Disabled Review of Systems - Review of Systems Review Of Systems: See Below Constitutional: Reports: No Symptoms Eyes: Reports: No Symptoms Ears: Reports: No Symptoms Nose: Reports: No Symptoms Mouth/Throat: Reports: No Symptoms Respiratory: Reports: No Symptoms Cardiovascular: Reports: No Symptoms ED EXAM, GENERAL - Physical Exam Exam: See Below Exam Limited By: No Limitations General Appearance: Alert, No Apparent Distress Ears: Normal External Exam Nose: Normal Inspection Head: Atraumatic, Normocephalic Neck: Normal Inspection Respiratory/Chest: No Respiratory Distress Extremities: Other (Puncture site to the dorsal right wrist. No erythema or edema noted. Pain upon palpation and with motion of the right thumb.) Course - Vital Signs Last Recorded V/S: Last Vital Signs Temp 97.1 F 11/25/19 06:16 Pulse 67 11/25/19 06:16 Resp 16 11/25/19 06:16 BP 135/78 11/25/19 06:16 Pulse Ox 97 11/25/19 06:16 - Orders/Labs/Meds Orders: Active Orders 24 hr Category Date Time Status Acetaminophen/HYDROcodone [[place] 325-5 MG] Med 11/25/19 06:36 Once 2 tab PO ONETIME ONE cephALEXin [Keflex] Med 11/25/19 06:37 Once 500 mg PO ONETIME ONE Durable Medical Equipment for Discharge [DME for Oth 11/25/19 06:37 Ordered Discharge] [COMM] Stat - Re-Assessments/Exams Free Text/Narrative Re-Assessment/Exam: 11/25/19 06:42 I ordered a thumb spica splint, keflex and percocet for pain. I feel this is D ezra's tenosynovitis. This is usually not infectious but with the history of the IV start I want her on some keflex for a week. Departure - Departure Time of Disposition: 18:45 Disposition: Home, Self-Care 01 Condition: Good Clinical Impression: Tenosynovitis of thumb - Discharge Information *PRESCRIPTION DRUG MONITORING PROGRAM REVIEWED*: No *COPY OF PRESCRIPTION DRUG MONITORING REPORT IN PATIENT [place]: No Prescriptions: cephALEXin [Keflex] 500 mg PO QID #40 capsule oxyCODONE HCl/Acetaminophen [Percocet 5-325 mg Tablet] 1 - 2 each PO Q6HR PRN #20 tablet PRN Reason: Pain Referrals: Brad Ibanez MD [Physician] - 1 Week Additional Instructions: Ice your wrist for 15 minutes 3 times per day for 2 days. Wear the splint for comfort. Take the keflex 4 times per day for 10 days. Take motrin or aleve for pain. If that does not help, you can take a percocet. Follow up with Dr Ibanez within a week. Please return if you are worse. Sepsis Event Note (ED) - Evaluation Sepsis Screening Result: No Definite Risk - Focused Exam Vital Signs: Vital Signs Temp Pulse Resp BP Pulse Ox 11/25/19 06:16 97.1 F 67 16 135/78 97 - My Orders Last 24 Hours: My Active Orders 11/25/19 06:36 Acetaminophen/HYDROcodone [[place] 325-5 MG] 2 tab PO ONETIME ONE 11/25/19 06:37 cephALEXin [Keflex] 500 mg PO ONETIME ONE Durable Medical Equipment for Discharge [DME for Discharge] [COMM] Stat - Assessment/Plan Last 24 Hours: My Active Orders 11/25/19 06:36 Acetaminophen/HYDROcodone [[place] 325-5 MG] 2 tab PO ONETIME ONE 11/25/19 06:37 cephALEXin [Keflex] 500 mg PO ONETIME ONE Durable Medical Equipment for Discharge [DME for Discharge] [COMM] Stat
== END 2019-11-25 07:09 | disposition home or self-care (01) ==
LOC: JD.ED 06:08
DX: S61.531A Puncture wound without foreign body of right wrist, initial encounter (principal); M65.9 Synovitis and tenosynovitis, unspecified; I10 Essential (primary) hypertension; F17.210 Nicotine dependence, cigarettes, uncomplicated; E66.9 Obesity, unspecified; Z68.41 Body mass index [BMI] 40.0-44.9, adult; Z88.5 Allergy status to narcotic agent; W26.8XXA Contact with other sharp object(s), not elsewhere classified, initial encounter
CPT/HCPCS: 29125; 99284; A9270; 99283

== ENCOUNTER 2020-07-16 06:26 | Emergency (ER) | payer MEDICARE, MEDICAID ==
[2020-07-16 06:34] VITALS: BP 159/88; PULSE 69
--- NOTE | 2020-07-16 07:10 | EDM.PDOC ---
ED HPI GENERAL MEDICAL PROBLEM - General Chief Complaint: General Stated Complaint: [facility] Time Seen by Provider: 07/16/20 07:10 - History of Present Illness INITIAL COMMENTS - FREE TEXT/NARRATIVE: 60-year-old female presents the emergency room with left shoulder pain. Sometime last night the patient thinks she got her arm in an awkward position. She has a history of restless leg syndrome and sometimes it affects her whole body. And she suspects she was shaking her arm. Patient denies any falls or other significant trauma. The patient had a arm sling from a prior injury at the house and she has been using this and says it helps. She does not want to use her shoulder because of the discomfort. Left Shoulder Pain Score (Numeric/FACES): 6 - Related Data Allergies Allergy/AdvReac Type Severity Reaction Status Date / Time hydrocodone Allergy Mild Other Verified 07/16/20 06:34 Home Meds: Home Meds Gabapentin [Neurontin] 800 mg PO TID 08/27/16 [History] tiZANidine [Zanaflex] 2 tab PO TID PRN 08/27/16 [History] traMADol [Ultram] 50 mg PO TID PRN 08/27/16 [History] Docusate Sodium [Stool Softener] 50 mg PO DAILY PRN 05/05/17 [History] cephALEXin [Keflex] 500 mg PO QID #40 capsule 11/25/19 [Rx] oxyCODONE HCl/Acetaminophen [Percocet 5-325 mg Tablet] 1 - 2 each PO Q6HR PRN #20 tablet 11/25/19 [Rx] Past Medical History HEENT History: Reports: Impaired Vision Cardiovascular History: Reports: High Cholesterol, Hypertension Gastrointestinal History: Reports: PUD Genitourinary History: Reports: Urinary Incontinence 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 - Infectious Disease History Infectious Disease History: Reports: Chicken Pox - Past Surgical History HEENT Surgical History: Reports: Oral Surgery, Tonsillectomy, Other (See Below) Other HEENT Surgeries/Procedures: reconstructive surgery to L) ear. Wears den tures, upper/lower plates. GI Surgical History: Reports: Colonoscopy Neurological Surgical History: Reports: Lumbar Spine Musculoskeletal Surgical History: Reports: Other (See Below) Other Musculoskeletal Surgeries/Procedures:: "decompression" surgery to lower back. L arm tendon injury Social & Family History - Family History Family Medical History: No Pertinent Family History - Tobacco Use Tobacco Use Status *Q: Current Every Day Tobacco User Years of Tobacco use: 30 Packs/Tins Daily: 1 - Caffeine Use Caffeine Use: Reports: Coffee - Recreational Drug Use Recreational Drug Use: Yes Recreational Drug Use Frequency: Socially - Living Situation & Occupation Living situation: Reports: , Alone Occupation: Disabled ED ROS GENERAL - Review of Systems Review Of Systems: See Below Constitutional: Reports: No Symptoms HEENT: Reports: No Symptoms Respiratory: Reports: No Symptoms Cardiovascular: Reports: No Symptoms. Denies: Chest Pain GI/Abdominal: Reports: No Symptoms ED EXAM, GENERAL - Physical Exam Exam: See Below Exam Limited By: No Limitations General Appearance: Alert, No Apparent Distress Head: Atraumatic, Normocephalic Neck: Normal Inspection, Supple, Non-Tender, Full Range of Motion. No: Lymph adenopathy (L), Lymphadenopathy (R) Respiratory/Chest: No Respiratory Distress, Lungs Clear, Normal Breath Sounds Cardiovascular: Regular Rate, Rhythm, No Edema, No Murmur Extremities: Other (Examination of the left forearm is little bit limited due to range of motion limits due to pain in the left shoulder.) Neurological: Other (Neurovascular status of the left forearm and hand is normal) Skin Exam: Warm, Dry, Intact, No Rash Course - Vital Signs Last Recorded V/S: Last Vital Signs Temp 36.3 C 07/16/20 06:30 Pulse 69 07/16/20 06:30 Resp 18 07/16/20 06:30 BP 159/88 H 07/16/20 06:30 Pulse Ox 94 L 07/16/20 06:30 - Orders/Labs/Meds Orders: Active Orders 24 hr Category Date Time Status Humerus Lt [CR] Stat Exams 07/16/20 07:16 Taken Shoulder Comp Lt [CR] Stat Exams 07/16/20 07:16 Taken - Re-Assessments/Exams Free Text/Narrative Re-Assessment/Exam: 07/16/20 07:36 X-ray examination of the left shoulder and humerus is negative for acute fracture dislocation. I did discuss my findings with the patient and she voices understanding. She will to continue to use her sling however I have advised her every couple hours to get her arm out of the sling just do gentle range of motion. Patient is follow-up with her regular physician next week on the fifth. This should be adequate for follow-up. She can use heat and ice to the area to see what helps with the discomfort and I have also recommended Tylenol. Departure - Departure Time of Disposition: 07:37 Disposition: Home, Self-Care 01 Clinical Impression: Left shoulder strain - Discharge Information Forms: ED Department Discharge Additional Instructions: Return to the emergency room with any questions problems or worsening symptoms. Follow-up with your regular healthcare provider next week as scheduled on the fifth. Use Tylenol as needed for discomfort. Ice and heat may be of some benefit. Sepsis Event Note (ED) - Evaluation Sepsis Screening Result: No Definite Risk - Focused Exam Vital Signs: Vital Signs Temp Pulse Resp BP Pulse Ox 07/16/20 06:30 36.3 C 69 18 159/88 H 94 L - My Orders Last 24 Hours: My Active Orders 07/16/20 07:16 Humerus Lt [CR] Stat Shoulder Comp Lt [CR] Stat - Assessment/Plan Last 24 Hours: My Active Orders 07/16/20 07:16 Humerus Lt [CR] Stat Shoulder Comp Lt [CR] Stat
--- NOTE | 2020-07-16 09:27 | CR ---
Left humerus: 2 views of the left humerus were obtained. Comparison: No prior humerus study is available. No fracture or other bony abnormality is appreciated. Impression: 1. Nothing acute is seen on 2 view left humerus study. Diagnostic code #1
--- NOTE | 2020-07-16 09:28 | CR ---
Left shoulder: 3 views of the left shoulder were obtained. Comparison: No previous study. Glenohumeral and acromioclavicular joint appears within normal limits. No acute fracture, dislocation or other bony abnormality is appreciated. Impression: 1. Nothing acute is seen on left shoulder study. Diagnostic code #1
== END 2020-07-16 07:35 | disposition home or self-care (01) ==
LOC: JD.ED 06:26
DX: S46.912A Strain of unspecified muscle, fascia and tendon at shoulder and upper arm level, left arm, initial encounter (principal); E66.9 Obesity, unspecified; E78.00 Pure hypercholesterolemia, unspecified; I10 Essential (primary) hypertension; Z72.0 Tobacco use; Z68.41 Body mass index [BMI] 40.0-44.9, adult; Z88.5 Allergy status to narcotic agent; X58.XXXA Exposure to other specified factors, initial encounter
CPT/HCPCS: 73030-26-LT; 73030-LT; 73060-26-LT; 73060-LT; 99282; 99284-25

== ENCOUNTER 2021-03-28 08:31 | Emergency (ER) | payer MEDICARE, MEDICAID ==
[2021-03-28 08:45] VITALS: BP 142/82; PULSE 88
[2021-03-28] MEDS ORDERED: Ondansetron 4 MG/2 ML SDV IVPUSH ONE (09:05)
[2021-03-28] MEDS ORDERED: HYDROmorphone 0.5 MG/0.5 ML Syringe IVPUSH ONE (09:05)
--- NOTE | 2021-03-28 09:07 | EDM.PDOC ---
ED HPI GENERAL MEDICAL PROBLEM - General Chief Complaint: Respiratory Problem Stated Complaint: [facility] Time Seen by Provider: 03/28/21 08:55 Source of Information: Reports: Patient History Limitations: Reports: No Limitations - History of Present Illness INITIAL COMMENTS - FREE TEXT/NARRATIVE: 61-year-old female presents to the ED per [facility]. Patient states she is not felt well since around mid January 2021. She has developed a paroxysmal cough which continues. She did have a negative Covid test on 2 other previous occasions. She did have a course of Zithromax in February. Overnight she developed a headache generalized myalgia paroxysmal cough and she states it is productive of sputum without blood. She never looked at it to give us a color. Associated nausea without vomiting. Reported fever at home but not febrile now. She has not taken anything for pain or fever. Rates her headache pain as 8-9 out of 10. She has not received any COVID-19 vaccination or influenza vaccination. She continues to smoke cigarettes 1 pack/day Onset: Sudden Onset Date: 03/27/21 (Acute worsening of symptoms with headache myalgia nausea and paroxysmal cough overnight. No severe chills) Duration: Hour(s):, Getting Worse Location: Reports: Head (Headache), Face (Sore throat), Chest (Paroxysmal cough), Other (Nausea without vomiting fever) Quality: Reports: Ache, Throbbing, Other (Aching with pulsation and throbbing. She is prone to migraines.) Severity: Severe ([phone]) Improves with: Reports: Rest Worsens with: Reports: Movement Context: Denies: Activity (Headache and nausea worse with sitting up and moving.), Exercise, Lifting, Sick Contact, Trauma, Other Associated Symptoms: Reports: Chest Pain, Cough, cough w sputum, Fever/Chills (She claims she had a fever at home but not now.), Headaches, Loss of Appetite, Malaise, Nausea/Vomiting. Denies: No Other Symptoms (From coughing so much.), Confusion, Diaphoresis, Rash, Seizure (Nausea without vomiting), Shortness of Breath Treatments LITERACY COORDINATOR: Reports: Other (see below) (None. She has not taken her regular medications this morning.) Headache Pain Score (Numeric/FACES): 4 - Related Data Allergies Allergy/AdvReac Type Severity Reaction Status Date / Time hydrocodone Allergy Severe Other Verified 03/28/21 08:44 Home Meds: Home Meds Gabapentin [Neurontin] 900 mg PO TID 08/27/16 [History] tiZANidine [Zanaflex] 2 tab PO TID PRN 08/27/16 [History] traMADol [Ultram] 50 mg PO TID PRN 08/27/16 [History] Docusate Sodium [Stool Softener] 50 mg PO DAILY PRN 05/05/17 [History] Hydrocodone/Chlorphen P-Stirex [Hydrocodone-Chlorphen ER Susp] 5 ml PO Q12H PRN #60 ml 03/28/21 [Rx] oxyCODONE HCl/Acetaminophen [Percocet 5-325 mg Tablet] 1 - 2 each PO Q4H PRN #10 tablet 03/28/21 [Rx] Past Medical History HEENT History: Reports: Impaired Vision, Other (See Below) (Patient has had tympanic membrane repair bilaterally in the past.) Cardiovascular History: Reports: High Cholesterol, Hypertension Gastrointestinal History: Reports: PUD Genitourinary History: Reports: Urinary Incontinence ANODIC TREATER History: Reports: 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 Neurological History: Reports: Headaches, Chronic Psychiatric History: Reports: Anxiety, Depression, Other (See Below) Endocrine/Metabolic History: Reports: Obesity/BMI 30+ Hematologic History: Reports: Other (See Below) Other Hematologic History: factor 5--recently Dx'd. - Infectious Disease History Infectious Disease History: Reports: Chicken Pox - Past Surgical History HEENT Surgical History: Reports: Oral Surgery, Tonsillectomy, Other (See Below) Other HEENT Surgeries/Procedures: reconstructive surgery to L) ear. Wears dentures, upper/lower plates. GI Surgical History: Reports: Colonoscopy Neurological Surgical History: Reports: Lumbar Spine Musculoskeletal Surgical History: Reports: Other (See Below) Other Musculoskeletal Surgeries/Procedures:: "decompression" surgery to lower back. L arm tendon injury Social & Family History - Family History Family Medical History: No Pertinent Family History - Caffeine Use Caffeine Use: Reports: Coffee - Living Situation & Occupation Living situation: Reports: , Alone Occupation: Disabled ED ROS GENERAL - Review of Systems Review Of Systems: See Below Constitutional: Reports: Fever, Chills, Malaise, Weakness, Fatigue, Decreased Appetite HEENT: Reports: Rhinitis, Sinus Problem (Persistent sinus congestion.), Throat Pain Respiratory: Denies: Shortness of Breath, Wheezing, Pleuritic Chest Pain, Cough, Sputum, Hemoptysis Cardiovascular: Reports: Chest Pain (Central chest discomfort from coughing so much.), Lightheadedness. Denies: Blood Pressure Problem, Claudication, Dyspnea on Exertion, Orthopnea, Syncope, Other Endocrine: Reports: Fatigue GI/Abdominal: Reports: Decreased Appetite, Nausea. Denies: Vomiting : Reports: Frequency Musculoskeletal: Reports: Muscle Pain Skin: Reports: No Symptoms (Mild generalized myalgia.) Neurological: Reports: Headache (Headache which she equates to migraine at this time). Denies: Confusion, Dizziness Psychiatric: Reports: Anxiety, Other Hematologic/Lymphatic: Reports: No Symptoms Immunologic: Reports: No Symptoms ED EXAM, GENERAL - Physical Exam Exam: See Below Exam Limited By: No Limitations General Appearance: Alert, WD/WN, No Apparent Distress, Other (Temperature is 36.4 degrees. Heart rate 88 and sinus. Respiratory is 20 with O2 sats of 94% room air. BP is 142/82.) Eye Exam: Bilateral Eye: Normal Inspection (Blepharal pallor or scleral icterus.), PERRL Ears: Other (Ears are erythematous and bulging combined with otitis media. Of note she has had surgery to both tympanic membranes in the past and I can see scar tissue bilaterally.) Ear Exam: Bilateral Ear: TM Red, TM Bulging Nose: No Blood, Other Throat/Mouth: Normal Inspection, Normal Lips, Normal Teeth, Normal Voice, Other (hs mild oropharyngeal) Head: Atraumatic ( erythema without exudate), Normocephalic Neck: Normal Inspection, Supple, Non-Tender, Full Range of Motion. No: Lymphadenopathy (L), Lymphadenopathy (R) Respiratory/Chest: No Respiratory Distress, Lungs Clear, Normal Breath Sounds, No Accessory Muscle Use. No: Wheezing, Stridor, Pleural Rub, Accessory Muscle Use Cardiovascular: Normal Peripheral Pulses, Regular Rate, Rhythm, No Edema, No Gallop, No JVD, No Rub Peripheral Pulses: 3+: Carotid (L), Carotid (R), Posterior Tibial (L), Posterior Tibial (R), Dorsalis Pedis (L), Dorsalis Pedis (R) GI/Abdominal: Normal Bowel Sounds, Soft, Non-Tender, No Organomegaly, No Distention, No Abnormal Bruit, Other (No surgical scars) Back Exam: Normal Inspection. No: CVA Tenderness (L), CVA Tenderness (R) Extremities: Normal Inspection, Normal Range of Motion, Non-Tender, No Pedal Edema Neurological: Alert, Oriented, CN II-XII Intact, Normal Cognition Psychiatric: Normal Affect, Normal Mood Skin Exam: Warm, Dry, Intact, Normal Color, No Rash Course - Vital Signs Last Recorded V/S: Last Vital Signs Temp 36.4 C 03/28/21 08:39 Pulse 88 03/28/21 08:39 Resp 20 03/28/21 08:39 BP 142/82 H 03/28/21 08:39 Pulse Ox 94 L 03/28/21 08:39 - Orders/Labs/Meds Orders: Active Orders 24 hr Category Date Time Status Vital Signs [RC] Q15M Care 03/28/21 10:13 Active Dextrose 5%-0.9% NaCl [Dextrose 5%-Normal Saline] 1,000 Med 03/28/21 09:15 Active ml IV ASDIRECTED EPINEPHrine [Adrenalin] Med 03/28/21 10:12 Active 0.3 mg IM ASDIRECTED PRN Famotidine [Pepcid] Med 03/28/21 10:12 Active 20 mg IVPUSH ASDIRECTED PRN Ketorolac [Toradol] Med 03/28/21 09:15 Active 30 mg IVPUSH ONETIME Sodium Chloride 0.9% [Saline Flush] Med 03/28/21 10:15 Active 30 ml FLUSH ASDIRECTED diphenhydrAMINE [Benadryl] Med 03/28/21 10:12 Active 50 mg IVPUSH ASDIRECTED PRN methylPREDNISolone Sod Succ [Solu-MEDROL] Med 03/28/21 10:12 Active 125 mg IVPUSH ASDIRECTED PRN Medication Orders Diphenhydramine HCl (Diphenhydramine 50 Mg/Ml Sdv) 50 mg IVPUSH ASDIRECTED PRN PRN Reason: hypersensitivity reaction Epinephrine HCl (Epinephrine 1 Mg/Ml Sdv) 0.3 mg IM ASDIRECTED PRN PRN Reason: hypersensitivity reaction Famotidine (Famotidine 20 Mg/2 Ml Sdv) 20 mg IVPUSH ASDIRECTED PRN PRN Reason: hypersensitivity reaction Dextrose/Sodium Chloride (Dextrose 5%-Normal Saline) 1,000 mls @ 999 mls/hr IV ASDIRECTED SHEY Last Infusion: 03/28/21 10:35 Dose: 190 mls/hr Documented by: Admin: 03/28/21 09:29 Dose: 999 mls/hr Documented by: LANIMIC Ketorolac Tromethamine (Ketorolac 30 Mg/Ml Sdv) 30 mg IVPUSH ONETIME SHEY Last Admin: 03/28/21 09:29 Dose: 30 mg Documented by: LIBIA Methylprednisolone Sodium Succinate (Methylprednisolone Sodium Succinate 125 Mg/2 Ml Sdv) 125 mg IVPUSH ASDIRECTED PRN PRN Reason: hypersensitivity reaction Sodium Chloride (Sodium Chloride 0.9% 10 Ml Syringe) 30 ml FLUSH ASDIRECTED [facility] Labs: Laboratory Tests 03/28/21 03/28/21 03/28/21 Range/Units 08:51 09:35 09:35 WBC 7.86 (3.98-10.04) K/mm3 RBC 5.08 (3.98-5.22) M/mm3 Hgb 15.4 (11.2-15.7) gm/dl Hct 46.9 H (34.1-44.9) % MCV 92.3 (79.4-94.8) fl MCH 30.3 (25.6-32.2) pg MCHC 32.8 (32.2-35.5) g/dl RDW Std Deviation 45.1 (36.4-46.3) fL Plt Count 284 (182-369) K/mm3 MPV 9.5 (9.4-12.3) fl Neut % (Auto) 67.4 (34.0-71.1) % Lymph % (Auto) 19.7 (19.3-51.7) % Kimble % (Auto) 9.5 (4.7-12.5) % Eos % (Auto) 2.5 (0.7-5.8) Baso % (Auto) 0.3 (0.1-1.2) % Neut # (Auto) 5.29 (1.56-6.13) K/mm3 Lymph # (Auto) 1.55 (1.18-3.74) K/mm3 Kimble # (Auto) 0.75 H (0.24-0.36) K/mm3 Eos # (Auto) 0.20 (0.04-0.36) K/mm3 Baso # (Auto) 0.02 (0.01-0.08) K/mm3 Sodium 141 (136-145) mEq/L Potassium 3.7 (3.5-5.1) mEq/L Chloride 102 (98-107) mEq/L Carbon Dioxide 28 (21-32) mEq/L Anion Gap 14.7 (5-15) BUN 6 L (7-18) mg/dL Creatinine 0.9 (0.55-1.02) mg/dL Est Cr Clr Drug Dosing 58.12 mL/min Estimated GFR (MDRD) > 60 (>60) mL/min BUN/Creatinine Ratio 6.7 L (14-18) Glucose 102 H (70-99) mg/dL Calcium 9.3 (8.5-10.1) mg/dL Magnesium 1.9 (1.8-2.4) mg/dL Total Bilirubin 0.4 (0.2-1.0) mg/dL AST 26 (15-37) U/L ALT 29 (14-59) U/L Alkaline Phosphatase 119 H (46-116) U/L C-Reactive Protein 1.9 H* (<1.0) mg/dL Total Protein 7.6 (6.4-8.2) g/dl Albumin 3.7 (3.4-5.0) g/dl Globulin 3.9 gm/dL Albumin/Globulin Ratio 1.0 (1-2) Influenza Type A RNA Negative (NEGATIVE) Influenza Type B RNA Negative (NEGATIVE) SARS-CoV-2 RNA (CRYSTAL) Positive H (NEGATIVE) Meds: Medications Generic Name Dose Route Start Last Admin Trade Name Freq PRN Reason Stop Dose Admin Diphenhydramine HCl 50 mg 03/28/21 10:12 Diphenhydramine 50 Mg/Ml Sdv IVPUSH ASDIRECTED PRN hypersensitivity reaction Epinephrine HCl 0.3 mg 03/28/21 10:12 Epinephrine 1 Mg/Ml Sdv IM ASDIRECTED PRN hypersensitivity reaction Famotidine 20 mg 03/28/21 10:12 Famotidine 20 Mg/2 Ml Sdv IVPUSH ASDIRECTED PRN hypersensitivity reaction Dextrose/Sodium Chloride 1,000 mls @ 999 mls/hr 03/28/21 09:15 03/28/21 10:35 Dextrose 5%-Normal Saline IV Infused ASDIRECTED SHEY Infusion Ketorolac Tromethamine 30 mg 03/28/21 09:15 03/28/21 09:29 Ketorolac 30 Mg/Ml Sdv IVPUSH 30 mg ONETIME SHEY Administration Methylprednisolone Sodium Succinate 125 mg 03/28/21 10:12 Methylprednisolone Sodium Succinate 125 Mg/2 Ml Sdv IVPUSH ASDIRECTED PRN hypersensitivity reaction Sodium Chloride 30 ml 03/28/21 10:15 Sodium Chloride 0.9% 10 Ml Syringe FLUSH ASDIRECTED SHEY Discontinued Medications Generic Name Dose Route Start Last Admin Trade Name Freq PRN Reason Stop Dose Admin Hydromorphone HCl 0.5 mg 03/28/21 09:05 03/28/21 09:30 Hydromorphone 0.5 Mg/0.5 Ml Syringe IVPUSH 03/28/21 09:06 0.5 mg ONETIME ONE Administration Bamlanivimab 700 mg/ 310 mls @ 310 mls/hr 03/28/21 10:30 03/28/21 10:33 Etesevimab 1,400 mg/ Sodium IV 03/28/21 11:29 310 mls/hr Chloride ONETIME ONE Administration Ondansetron HCl 4 mg 03/28/21 09:05 03/28/21 09:30 Ondansetron 4 Mg/2 Ml Sdv IVPUSH 03/28/21 09:06 4 mg ONETIME ONE Administration - Radiology Interpretation Free Text/Narrative:: 61-year-old female presents to the ED per [facility] after developing worsening cough and associated severe headache this morning. Associated nausea without vomiting. The cat apparently developed a high fever overnight 101.2. She never took any Tylenol or Motrin and she is afebrile in the department. She reports she has had a paroxysmal relatively productive cough since mid January. Treated with a Z-Ranjan in February without much change or improvement. Cough is worsened overnight and seems to becoming more productive. Plan she will have a chest x-ray performed. Swabs for COVID-19 and influenza A have been collected. Suspect influenza A infection. She'll have IV fluids D5 normal saline at open. Given Dilaudid 0.5 mg IV with the with Toradol 30 mg IV and Zofran 4 mg IV for headache relief and nausea relief. - Re-Assessments/Exams Free Text/Narrative Re-Assessment/Exam: 03/28/21 10:07 Hematology reveals a white count of 7.86. The auto differential reveals 67.4% neutrophils. Hemoglobin is 15.4 with hematocrit of 46.9 suggesting mild hemoconcentration. Platelet count is 284,000. Influenza screen is negative but she is positive for COVID-19 illness. Chest x-ray reveals the cardiac silhouette and mediastinum are normal. Lungs are clear with no evidence of pleural effusion or pneumothorax. No evidence of pulmonary edema. Her risk factors are primarily that of obesity. O2 sats at time of presentation are 94% on room air. She will be given the information packet to see if she is interested in monoclonal antibody infusion. 03/28/21 10:20 I discussed the findings of COVID-19 positivity negative influenza screen with her. She is obese and and therefore at higher risk of developing further problems. Current chest x-ray is negative for any pneumonia and cardiac size is normal. She was given the information sheet to read about monoclonal antibody therapy and after discussion she is opted to pursue this form of treatment. She is aware that is an EUA medication not yet approved by the FDA. It is approved by an emergency with authorization process only at this time. I shared potential risks from the therapy including adverse reactions particular urticaria, other allergic reactions including anaphylaxis which could be fatal. We discussed side effects and she wishes to pursue treatment for herself Katelin Huggins. 03/28/21 11:19 Chemistry reveals a sodium 141 and potassium of 3.7. Chloride is 102 with a bicarb of 28. Anion gap is 14.7. BUN was 6 with a creatinine of 0.9 and a GFR greater than 60. Glucose was 102. Calcium was 9.3 with a magnesium of 1.9 liver function is normal other than slightly elevated alkaline phosphatase at 119. C-reactive protein was 1.9 total protein 7.6 with an albumin fraction of 3.7. Thus far the patient is tolerating monoclonal antibody infusion which will be done at approximately 1133 hrs. She will then enter the monitoring phase. 03/28/21 12:19 patient has had no adverse effects to monoclonal body infusion. She will be discharged to use Tussionex cough syrup 5 mils every 12 hours as needed for cough relief. She will be given a pulse oximeter to check her oxygen levels at home as we really cannot pin down which days she became ill. Certainly development of headache and body aches worsened yesterday. She has a son at home who is coughing and likely is the person who transmitted the Covid to her. She will return to medical care if O2 sats remain lower than 90% for 2 consecutive hours. Departure - Departure Time of Disposition: 12:27 Disposition: Home, Self-Care 01 Condition: Fair Clinical Impression: COVID-19 - Discharge Information *PRESCRIPTION DRUG MONITORING PROGRAM REVIEWED*: Not Applicable *COPY OF PRESCRIPTION DRUG MONITORING REPORT IN PATIENT [place]: Not Applicable Prescriptions: Hydrocodone/Chlorphen P-Stirex [Hydrocodone-Chlorphen ER Susp] 5 ml PO Q12H PRN #60 ml PRN Reason: Paroxysmal cough due to COVID- oxyCODONE HCl/Acetaminophen [Percocet 5-325 mg Tablet] 1 - 2 each PO Q4H PRN #10 tablet PRN Reason: pain relief. Instructions: COVID-19 Frequently Asked Questions, 10 Things You Can Do to Manage Your COVID-19 Symptoms at Home - [facility] (10/04/2020), Symptoms of COVID-19 - [facility] (05/13/2020), COVID-19 Quarantine vs. Isolation - [facility] (12/16/2020) Referrals: PCP,None [Ordering Only Provider] - Forms: ED Department Discharge, ED Return to Work/School Form Additional Instructions: Evaluation in the emergency room today due to acute onset of generalized body aches and quite bad headache associate with a paroxysmal nonproductive cough. It is unclear how long you have been ill over headache became much worse last night suggesting recent diagnosis of COVID-19 illness started within the last few days. At present your oxygen saturations were around 94% and therefore you were candidate for monoclonal antibody infusion which you did receive. Chest x- ray was negative for any pneumonia at this time. Treatment is to wear a mask at all times for the next 10 days to prevent spread of the infection to others. Of course can be off in your own home if no one else is around that could contract the illness. Monitor your oxygen levels with pulse oximeter on your finger on average 4 times daily. You would need to return to the hospital if your oxygen levels are staying persistently below 90% for 2 consecutive hours. I have written a prescription for cough syrup Tussionex to be taken 5 mils every 12 hours as needed for cough relief but ideally should be used about an hour before planning to go to bed so that she can get appropriate rest without coughing all night. I have also prescribed Percocet tabs 5/325 mg strength 1 or 2 tablets every 4-6 hours necessary for headache relief. These medications were sent electronically to [facility] pharmacy in [place]. Usually will need either Tylenol 1 g every 6 hours or Motrin 600 mg every 6 hours to relieve fever and body ache. Plenty of fluids like Gatorade or Powerade to prevent dehydration. Appetite usually goes out the window but try and eat what you can. Follow-up with personal care provider if any further problems occur or return to the ED. Sepsis Event Note (ED) - Evaluation Sepsis Screening Result: No Definite Risk - Focused Exam Vital Signs: Vital Signs Temp Pulse Resp BP Pulse Ox 03/28/21 08:39 36.4 C 88 20 142/82 H 94 L - My Orders Last 24 Hours: My Active Orders 03/28/21 09:15 Dextrose 5%-0.9% NaCl [Dextrose 5%-Normal Saline] 1,000 ml IV ASDIRECTED Ketorolac [Toradol] 30 mg IVPUSH ONETIME 03/28/21 10:12 EPINEPHrine [Adrenalin] 0.3 mg IM ASDIRECTED PRN Famotidine [Pepcid] 20 mg IVPUSH ASDIRECTED PRN diphenhydrAMINE [Benadryl] 50 mg IVPUSH ASDIRECTED PRN methylPREDNISolone Sod Succ [Solu-MEDROL] 125 mg IVPUSH ASDIRECTED PRN 03/28/21 10:13 Vital Signs [RC] Q15M 03/28/21 10:15 Sodium Chloride 0.9% [Saline Flush] 30 ml FLUSH ASDIRECTED - Assessment/Plan Last 24 Hours: My Active Orders 03/28/21 09:15 Dextrose 5%-0.9% NaCl [Dextrose 5%-Normal Saline] 1,000 ml IV ASDIRECTED Ketorolac [Toradol] 30 mg IVPUSH ONETIME 03/28/21 10:12 EPINEPHrine [Adrenalin] 0.3 mg IM ASDIRECTED PRN Famotidine [Pepcid] 20 mg IVPUSH ASDIRECTED PRN diphenhydrAMINE [Benadryl] 50 mg IVPUSH ASDIRECTED PRN methylPREDNISolone Sod Succ [Solu-MEDROL] 125 mg IVPUSH ASDIRECTED PRN 03/28/21 10:13 Vital Signs [RC] Q15M 03/28/21 10:15 Sodium Chloride 0.9% [Saline Flush] 30 ml FLUSH ASDIRECTED
[2021-03-28] MEDS ORDERED: Ketorolac 30 MG/ML SDV IVPUSH SCH (09:15)
[2021-03-28] MEDS ORDERED: Dextrose 5%-0.9% NaCl 1,000 ML IV SCH (09:15)
[2021-03-28 09:56] LABS: CORONAVIRUS COVID-19 NAA POSITIVE (NEGATIVE)
--- NOTE | 2021-03-28 09:56 | CR ---
EXAM: XR CHEST 1 VIEW LOCATION: [facility] [employer] DATE/TIME: 03/28/2021 9:08 AM INDICATION: Paroxysmal productive cough for 2 months. Worse in last 48 hours. COMPARISON: 08-27-2016. IMPRESSION: Lungs are clear. No pleural effusion or pneumothorax. Normal heart size. No pulmonary edema. No significant change since prior. SIGNED BY: J Luis Suarez DO 03/28/2021 10:22 AM DOMINIQUE
[2021-03-28] MEDS ORDERED: methylPREDNISolone Sodium Succinate 125 MG/2 ML SDV IVPUSH PRN (10:12)
[2021-03-28] MEDS ORDERED: Famotidine 20 MG/2 ML SDV IVPUSH PRN (10:12)
[2021-03-28] MEDS ORDERED: diphenhydrAMINE 50 MG/ML SDV IVPUSH PRN (10:12)
[2021-03-28] MEDS ORDERED: EPINEPHrine 1 MG/ML SDV IM PRN (10:12)
[2021-03-28] MEDS ORDERED: Sodium Chloride 0.9% 10 ML Syringe FLUSH SCH (10:15)
== END 2021-03-28 12:50 | disposition home or self-care (01) ==
LOC: JD.ED 08:31
DX: U07.1 COVID-19 (principal); E78.00 Pure hypercholesterolemia, unspecified; I10 Essential (primary) hypertension; E66.9 Obesity, unspecified; Z68.39 Body mass index [BMI] 39.0-39.9, adult; Z88.5 Allergy status to narcotic agent
CPT/HCPCS: 0240U; 36415; 71045; 80053; 83735; 85025; 86140; 96374; 96375; 99284; J1170; J1885; J2405; J7042; J7050; M0245; Q0245

== ENCOUNTER 2023-10-04 07:00 | Day surgery (SDC) | payer MEDICARE, MEDICAID ==
[~2023-10-04 07:00] MED LIST: EPINEPHrine 1 MG/ML SDV ONE; Lidocaine 1% 5 ML VIAL ONE; Midazolam 1 MG/ML 2 ML SDV ONE; Ondansetron 4 MG/2 ML SDV ONE; Propofol 200 MG/20 ML SDV ONE; Rocuronium 50 MG/5 ML Vial ONE; Ropivacaine 0.5% 5 MG/ML 30 ML SDV ONE; Sodium Chloride 0.9% 10 ML Syringe FLUSH PRN; Sodium Chloride 0.9% 10 ML Syringe FLUSH SCH; fentaNYL 250 MCG/5 ML SDV ONE
[2023-10-04] MEDS: Lactated Ringers 1,000 ML IV SCH (07:30)
[2023-10-04] MEDS ORDERED: HYDROmorphone 0.5 MG/0.5 ML Syringe IVPUSH PRN (08:26)
[2023-10-04] MEDS ORDERED: fentaNYL 100 MCG/2 ML SDV IVPUSH PRN (08:26)
[2023-10-04] MEDS: Albuterol 0.083% 2.5 MG/3 ML Neb Soln NEB SCH (08:45)
[2023-10-04] MEDS ORDERED: ceFAZolin 2 GM Vial ONE (08:46)
[2023-10-04] MEDS ORDERED: Dexamethasone 4 MG/ML 5 ML MDV ONE (08:47)
[2023-10-04] MEDS ORDERED: Lactated Ringers 1,000 ML ONE (09:47)
[2023-10-04] MEDS ORDERED: Ketorolac 30 MG/ML SDV ONE (10:22)
[2023-10-04] MEDS: Vancomycin 1 GM SDV ONE (10:22)
[2023-10-04] MEDS: Tranexamic Acid 1,000 MG/10 ML Vial ONE (10:22)
[2023-10-04] MEDS ORDERED: Neostigmine Methylsulfate 10 MG/10 ML MDV ONE (10:24)
[2023-10-04] MEDS ORDERED: oxyCODONE 5 MG Tab PO PRN (11:26)
[2023-10-04] MEDS: Ondansetron 4 MG/2 ML SDV IVPUSH PRN (14:16)
[2023-10-04 14:58] VITALS: BP 156/78; PULSE 71
[2023-10-04] MEDS: oxyCODONE 5 MG Tab PO PRN (15:08)
== END 2023-10-04 15:40 | disposition home or self-care (01) ==
LOC: JD.SDS 07:00
PROVIDERS: ATTEND Orthopaedic Surgery
DX: M19.011 Primary osteoarthritis, right shoulder (principal); M75.101 Unspecified rotator cuff tear or rupture of right shoulder, not specified as traumatic; I10 Essential (primary) hypertension; E78.00 Pure hypercholesterolemia, unspecified; F32.A Depression, unspecified; Z87.891 Personal history of nicotine dependence; Z79.82 Long term (current) use of aspirin; Z79.899 Other long term (current) drug therapy; Z88.5 Allergy status to narcotic agent
CPT/HCPCS: 23472; 64415; 76000; 97161; 97530; A9270; C1713; C1769; C1776; J0171; J0690; J1100; J1885; J2250; J2405; J2704; J2710; J2795; J3010; J3370; J3490; J7120; 01638; J7620-GY

== ENCOUNTER 2023-11-28 11:45 | Emergency (ER) | payer MEDICARE, MEDICAID ==
[2023-11-28 12:06] VITALS: BP 149/76; PULSE 72
== END 2023-11-28 14:59 | disposition home or self-care (01) ==
LOC: JD.ED 11:45
DX: M75.21 Bicipital tendinitis, right shoulder (principal); M77.8 Other enthesopathies, not elsewhere classified; I10 Essential (primary) hypertension; E78.00 Pure hypercholesterolemia, unspecified; E66.9 Obesity, unspecified; Z79.899 Other long term (current) drug therapy; Z68.38 Body mass index [BMI] 38.0-38.9, adult
CPT/HCPCS: 73030-26-RT; 73030-RT; 99283; 99284

== ENCOUNTER 2024-02-21 06:45 | Day surgery (SDC) | payer MEDICARE, MEDICAID ==
[2024-02-21] MEDS: Lactated Ringers 1,000 ML IV SCH (06:35)
[2024-02-21] MEDS ORDERED: Sodium Chloride 0.9% 10 ML Syringe FLUSH PRN (07:00)
[2024-02-21] MEDS ORDERED: dexmedeTOMIDine HCl 200 MCG/2 ML SDV ONE (07:05)
[2024-02-21] MEDS ORDERED: Ropivacaine 0.5% 5 MG/ML 30 ML SDV ONE (07:05)
[2024-02-21] MEDS ORDERED: fentaNYL 100 MCG/2 ML SDV ONE ×3 (07:08→08:23)
[2024-02-21] MEDS ORDERED: Midazolam 1 MG/ML 2 ML SDV ONE (07:08)
[2024-02-21] MEDS: oxyCODONE ER 10 MG TAB.ER PO SCH (07:11)
[2024-02-21] MEDS: Pregabalin 25 MG Cap PO SCH (07:11)
[2024-02-21] MEDS: Acetaminophen 325 MG Tab PO SCH (07:11)
[2024-02-21] MEDS ORDERED: Propofol 200 MG/20 ML SDV ONE ×3 (07:27→08:24)
[2024-02-21] MEDS ORDERED: Rocuronium 50 MG/5 ML Vial ONE (07:28)
[2024-02-21] MEDS ORDERED: Lidocaine 1% 5 ML VIAL ONE (07:28)
[2024-02-21] MEDS ORDERED: Dexamethasone 4 MG/ML 5 ML MDV ONE (07:28)
[2024-02-21] MEDS ORDERED: Ondansetron 4 MG/2 ML SDV ONE (07:28)
[2024-02-21] MEDS ORDERED: ceFAZolin 2 GM Vial ONE (08:13)
[2024-02-21] MEDS ORDERED: ePHEDrine 50 MG/ML SDV ONE (08:20)
[2024-02-21] MEDS ORDERED: Lactated Ringers 1,000 ML ONE (08:40)
[2024-02-21] MEDS ORDERED: Phenylephrine 1% 10 MG/ML SDV ONE (09:00)
[2024-02-21] MEDS ORDERED: fentaNYL 100 MCG/2 ML SDV IVPUSH PRN (09:04)
[2024-02-21] MEDS ORDERED: HYDROmorphone 0.5 MG/0.5 ML Syringe IVPUSH PRN (09:04)
[2024-02-21] MEDS ORDERED: Ondansetron 4 MG/2 ML SDV IVPUSH PRN (09:04)
[2024-02-21] MEDS ORDERED: Neostigmine Methylsulfate 10 MG/10 ML MDV ONE (09:12)
[2024-02-21] MEDS: Tranexamic Acid 1,000 MG/10 ML Vial ONE (09:19)
[2024-02-21] MEDS: VANCOmycin 1 GM SDV ONE (09:19)
[2024-02-21] MEDS: oxyCODONE 5 MG Tab PO PRN (18:33)
[2024-02-21] MEDS: Sodium Chloride 0.9% 10 ML Syringe FLUSH SCH (22:08)
[2024-02-22 06:04] VITALS: BP 168/92; PULSE 67
== END 2024-02-22 04:57 | disposition home or self-care (01) ==
LOC: JD.SDS 06:45 → JD.MS 17:30 → JD.SDS 02-22 04:57
PROVIDERS: ATTEND Orthopaedic Surgery
DX: M19.012 Primary osteoarthritis, left shoulder (principal); M54.50 Low back pain, unspecified; G89.29 Other chronic pain; E78.2 Mixed hyperlipidemia; E78.00 Pure hypercholesterolemia, unspecified; I10 Essential (primary) hypertension; E66.9 Obesity, unspecified; F17.210 Nicotine dependence, cigarettes, uncomplicated; Z68.30 Body mass index [BMI] 30.0-30.9, adult; Z79.899 Other long term (current) drug therapy
CPT/HCPCS: 23472; 64415; 76000; 97116; 97161; 97530; A9270; C1713; C1769; C1776; J0690; J1100; J2250; J2371; J2405; J2704; J2710; J2795; J3010; J3490; J7120

== ENCOUNTER 2024-09-08 11:57 | Emergency (ER) | payer MEDICARE, MEDICAID ==
[2024-09-08 12:25] VITALS: BP 176/95; PULSE 74
== END 2024-09-08 13:45 | disposition home or self-care (01) ==
LOC: JD.ED 11:57
DX: M77.8 Other enthesopathies, not elsewhere classified (principal); I10 Essential (primary) hypertension; E78.00 Pure hypercholesterolemia, unspecified; F17.200 Nicotine dependence, unspecified, uncomplicated; E66.9 Obesity, unspecified; Z86.16 Personal history of COVID-19; Z79.899 Other long term (current) drug therapy
CPT/HCPCS: 99283